=== PATIENT | female | born 1960 | race Native Hawaiian/Other Pacific Islander ===

== ENCOUNTER 2018-09-30 11:49 | Emergency (ER) | payer OTHER ==
[2018-09-30] MEDS ORDERED: Sodium Chloride 0.9% 1,000 ML IV SCH (12:45)
--- NOTE | 2018-09-30 13:16 | ED PDOC ---
HPI: SOB/CHF/COPD Time Seen by Provider: 09/30/18 12:13 Chief Complaint (Nursing): Shortness Of Breath Chief Complaint (Provider): Shortness of breath History Per: Patient, Family History/Exam Limitations: no limitations Onset/Duration Of Symptoms: Days Current Symptoms Are (Timing): Still Present Exacerbating Factor(s): Coughing Additional History Per: Patient Additional Complaint(s): 58yo female, with history of asthma, comes to ER reporting coughing since this morning, associated with wheezing and shortness of breath; patient states her symptoms are associated with previous episodes of asthma. Patient's daughter states the patient was coughing this morning and had a (?) syncopal episode, which the daughter witnessed. Patient otherwise denies any chest pain, lightheadedness, dizziness, or weakness. EMS was called and they gave patient 2 albuterol treatments, after which she felt much better. Patient otherwise denies any cough, wheeze or shortness of breath at this time. No additional complaints. Past Medical History Reviewed: Historical Data, Nursing Documentation, Vital Signs Vital Signs: Last Vital Signs Temp 99.0 F 09/30/18 12:13 Pulse 89 09/30/18 12:13 Resp 20 09/30/18 12:26 BP 159/86 H 09/30/18 12:13 Pulse Ox 99 09/30/18 12:13 - Medical History PMH: Asthma, HTN - Surgical History Surgical History: No Surg Hx - Family History Family History: States: No Known Family Hx - Living Arrangements Living Arrangements: With Family - Social History Current smoker - smoking cessation education provided: No Alcohol: None Drugs: Denies - Home Medications Home Medications: Ambulatory Orders Medication Instructions Recorded Albuterol 0.083% [Albuterol 0.083% 2.5 mg IH Q4 #120 neb 09/30/18 Inhal Mariluz (2.5 mg/3 ml) UD] Albuterol HFA [Ventolin HFA 90 2 puff IH [id number] #1 puff 09/30/18 mcg/actuation (8 g)] Oseltamivir Phosphate [Tamiflu] 75 mg PO BID 5 Days #10 capsule 09/30/18 RX: predniSONE [predniSONE Tab] 40 mg PO DAILY 5 Days #20 tab 09/30/18 - Allergies Allergies/Adverse Reactions: Allergies Allergy/AdvReac Type Severity Reaction Status Date / Time No Known Allergies Allergy Verified 09/30/18 12:43 Review of Systems ROS Statement: Except As Marked, All Systems Reviewed And Found Negative Constitutional: Negative for: Fever, Chills Cardiovascular: Negative for: Chest Pain Respiratory: Positive for: Cough (now resolved), Shortness of Breath (now resolved) Physical Exam - Reviewed Nursing Documentation Reviewed: Yes Vital Signs Reviewed: Yes - Physical Exam Appears: Positive for: No Acute Distress Head Exam: Positive for: ATRAUMATIC, NORMAL INSPECTION, NORMOCEPHALIC Skin: Positive for: Normal Color Eye Exam: Positive for: Normal appearance Cardiovascular/Chest: Positive for: Regular Rate, Rhythm Respiratory: Positive for: Normal Breath Sounds. Negative for: Rales, Rhonchi, Wheezing Gastrointestinal/Abdominal: Positive for: Soft Back: Positive for: Normal Inspection Extremity: Positive for: Normal ROM. Negative for: Pedal Edema, Deformity Neurologic/Psych: Positive for: Alert, Oriented. Negative for: Motor/Sensory Deficits - Laboratory Results Result Diagrams: 09/30/18 14:00 09/30/18 14:00 - ECG O2 Sat by Pulse Oximetry: 99 (RA) Pulse Ox Interpretation: Normal Medical Decision Making Medical Decision Making: Assessment: 58yo female with history of asthma, comes to ER reporting shortness of breath, cough patient states her presentation is consistent with prior episodes of asthma exacerbation Plan: -- Labs -- Chest x-ray -- IV fluids -- Rapid flu 1450 Chest x-ray FINDINGS: LUNGS: Minor bibasilar atelectasis or scarring.. Questionable confluence of shadow artifact versus small bleb or bulla left lung base. The interstitial markings are also slightly increased and coarsened; rule out sequela of reactive/inflammatory airway disease or viral illness. PLEURA: No significant pleural effusion identified. No pneumothorax apparent. CARDIOVASCULAR: No aortic atherosclerotic calcification present. Normal cardiac size. No pulmonary vascular congestion. OSSEOUS STRUCTURES: Mild multilevel degenerative spondylosis of the thoracic spine. VISUALIZED UPPER ABDOMEN: Normal. OTHER FINDINGS: None. IMPRESSION: Minor bibasilar atelectasis or scarring.. Questionable confluence of shadow artifact versus small bleb or bulla left lung base. The interstitial markings are also slightly increased and coarsened; rule out sequela of reactive/in flammatory airway disease or viral illness. Pt. continues to feel well, appears nontoxic, lungs clear, with repeat pulse ox: 99% on RA, no distress. 1454 Patient seen and evaluated by ER attending Dr. Wheeler, recommends Tamiflu, prednisone, and albuterol prescription. Also informed of patient about her elevated blood sugar and discussed importance of frequent blood sugar level checks and close follow up with PMD. Patient expresses understanding and is agreeable with plan for discharge home; patient stable upon discharge home. Scribe Attestation: Documented by Oksana Marti acting as a scribe for HOWARD Wong. Provider Attestation: All medical record entries made by the Scribe were at my direction and personally dictated by me. I have reviewed the chart and agree that the record accurately reflects my personal performance of the history, physical exam, medical decision making, and the department course for this patient. I have also personally directed, reviewed, and agree with the discharge instructions and disposition. Disposition - Clinical Impression Clinical Impression: Flu syndrome, Asthma - Disposition Disposition: Routine/Home Disposition Time: 14:57 Condition: STABLE Prescriptions: Albuterol HFA [Ventolin HFA 90 mcg/actuation (8 g)] 2 puff IH [id number] #1 puff Albuterol 0.083% [Albuterol 0.083% Inhal Mariluz (2.5 mg/3 ml) UD] 2.5 mg IH Q4 #120 neb Oseltamivir Phosphate [Tamiflu] 75 mg PO BID 5 Days #10 capsule RX: predniSONE [predniSONE Tab] 40 mg PO DAILY 5 Days #20 tab Instructions: Flu, Asthma in Adults Forms: [facility] (Turkish)
[2018-09-30 14:18] LABS: BASO % 0.6 % (0.0-2.0); EOS # 0.1 K/uL (0.0-0.7); HEMOGLOBIN 12.3 g/dL (12.0-16.0); LYMPH # 2.8 K/uL (1.0-4.3); LYMPH % 53.4 % (20.0-40.0); MEAN CELL VOLUME 78.1 fl (81.0-99.0); MEAN CORPUSCULAR HEMOGLOBIN 25.1 pg (27.0-31.0); MEAN CORPUSCULAR HGB CONC 32.2 g/dL (33.0-37.0); MEAN PLATELET VOLUME 9.7 fl (7.2-11.7); MONO # 0.4 K/uL (0.0-0.8); MONO % 8.5 % (0.0-10.0); NEUT # 1.9 K/uL (1.8-7.0); NEUT % 35.5 % (50.0-75.0); NRBC % 0.1 % (0.0-0.0); RBC 4.91 Mil/uL (3.80-5.20); RED CELL DISTRIBUTION WIDTH 13.8 % (11.5-14.5); WHITE BLOOD COUNT 5.2 K/uL (4.8-10.8)
[2018-09-30 14:24] LABS: ALB/GLOB RATIO 1.1 (1.0-2.1); ALBUMIN 4.3 g/dL (3.5-5.0); ALT/SGPT 31 U/L (9-52); AST/SGOT 45 U/L (14-36); BLOOD UREA NITROGEN 13 mg/dl (7-17); CALCIUM 9.5 mg/dL (8.4-10.2); GFR NON-AFRICAN AMERICAN > 60
--- NOTE | 2018-09-30 14:48 | RAD ---
Date of service: 09/30/2018 HISTORY: cough COMPARISON: No prior. TECHNIQUE: Chest PA and lateral FINDINGS: LUNGS: Minor bibasilar atelectasis or scarring.. Questionable confluence of shadow artifact versus small bleb or bulla left lung base. The interstitial markings are also slightly increased and coarsened; rule out sequela of reactive/inflammatory airway disease or viral illness. PLEURA: No significant pleural effusion identified. No pneumothorax apparent. CARDIOVASCULAR: No aortic atherosclerotic calcification present. Normal cardiac size. No pulmonary vascular congestion. OSSEOUS STRUCTURES: Mild multilevel degenerative spondylosis of the thoracic spine. VISUALIZED UPPER ABDOMEN: Normal. OTHER FINDINGS: None. IMPRESSION: Minor bibasilar atelectasis or scarring.. Questionable confluence of shadow artifact versus small bleb or bulla left lung base. The interstitial markings are also slightly increased and coarsened; rule out sequela of reactive/inflammatory airway disease or viral illness.
[2018-09-30 15:02] VITALS: BP 114/75; PULSE 80; RESP 18; TEMP 98.7
[2018-09-30 16:38] VITALS: O2SAT 99
--- NOTE | 2018-09-30 21:40 | CARD ---
APPROVED REPORT Date of service: 09/30/2018 EKG Measurement Heart [id number] <Conclusion> Normal sinus rhythm Incomplete right bundle branch block Minimal voltage criteria for LVH, may be normal variant Borderline ECG
== END 2018-09-30 15:00 | disposition home or self-care (01) ==
LOC: H.ER 11:49
DX: J11.1 Influenza due to unidentified influenza virus with other respiratory manifestations (principal); J45.909 Unspecified asthma, uncomplicated
CPT/HCPCS: 71046; 80053; 84484; 85025; 87804; 93005; 99284; J7030